=== PATIENT | female | born 1980 | race Hispanic/Latino ===

== ENCOUNTER 2017-07-14 17:31 | Emergency (ER) | payer MEDICAID ==
[2017-07-14 19:16] LABS: RAPID GROUP A STREP NEGATIVE (NEGATIVE)
== END 2017-07-14 19:29 | disposition home or self-care (01) ==
LOC: EDH 17:31
DX: O99.513 Diseases of the respiratory system complicating pregnancy, third trimester (principal); J09.X2 Influenza due to identified novel influenza A virus with other respiratory manifestations; Z3A.30 30 weeks gestation of pregnancy
CPT/HCPCS: 87804; 87880

== ENCOUNTER 2017-10-05 19:38 | Inpatient (IN) | payer MEDICAID ==
[~2017-10-05] VITALS: Ht 157.5 cm; Wt 82.6 kg
[2017-10-05] MEDS ORDERED: OXYTOCIN 10 USP UNITS/ML 20 UNIT in LACTATED RINGERS 1000ML 1,000 ML IV SCH (20:30)
[2017-10-05 20:51] LABS: APPEARANCE,URINE Clear (CLEAR); BILIRUBIN,URINE Negative (NEGATIVE); COLOR,URINE Yellow (YELLOW); GLUCOSE, URINE (UA) Negative (NEGATIVE); KETONES,URINE Negative (NEGATIVE); LEUKOCYTE ESTERASE ,URINE Small (NEGATIVE); NITRATE,URINE Negative (NEGATIVE); OCCULT BLOOD,URINE Small (NEGATIVE); PROTEIN,URINE Negative (NEGATIVE)
[2017-10-05 21:06] LABS: BACTERIA,URINE Moderate /HPF (None Seen); MUCUS,URINE Few LPF (None Seen); SQUAMOUS EPITHELIAL CELL,UR 30-50 /HPF (0-2)
[2017-10-05 22:42] LABS: MEAN CORPUSCULAR VOLUME 80.1 fL (79-99); NUCLEATED RED BLOOD CELLS 0.1 % (0.0-0.19); PLATELET COUNT (AUTO) 168 K/uL (130-400); RED BLOOD CELL COUNT(AUTO) 3.62 MIL/uL (4.00-5.50); RED CELL DISTRIBUTION WIDTH 15.1 % (11.0-15.5); WHITE BLOOD COUNT (AUTO) 9.7 K/uL (4.8-10.8)
[2017-10-06] MEDS ORDERED: LACTATED RINGERS 1000ML 1,000 ML IV ONE ×3 (00:34→11:39)
[2017-10-06] MEDS ORDERED: OXYTOCIN 10 USP UNITS/ML ONE ×2 (04:48→11:39)
[2017-10-06] MEDS ORDERED: PROMETHAZINE HCL 25 MG/ML 1ML AMPULE IM ONE (10:42)
[2017-10-06] MEDS ORDERED: MEPERIDINE-PF 50 MG/ML SYG ONE (10:43)
[2017-10-06] MEDS ORDERED: MEPERIDINE-PF 50 MG/ML SYG IVP SCH (10:45)
[2017-10-06] MEDS ORDERED: PROMETHAZINE HCL 25 MG/ML 1ML AMPULE IM SCH (10:45)
[2017-10-06] MEDS ORDERED: OXYTOCIN-LR 20 UNITS/1000 ML 1,000 ML IV SCH (12:00)
[2017-10-06] MEDS ORDERED: BENZOCAINE/LANOLIN/ALOE VERA 60 ML AEROSOL TP PRN (12:00)
[2017-10-06] MEDS ORDERED: WITCH HAZEL 1 PAD TP PRN (12:00)
[2017-10-06] MEDS ORDERED: DIPH,PERTUSS(ACELL),TET VAC/PF 0.5 ML VIAL IM PRN (12:00)
[2017-10-06] MEDS ORDERED: MEASLES/MUMPS/RUBELLA VACCINE, LIVE 0.5 ML/VIAL SQ PRN (12:00)
[2017-10-06] MEDS ORDERED: LANOLIN 30GM OINTMENT TP PRN (12:00)
[2017-10-06] MEDS: IBUPROFEN 600 MG TABLET PO PRN (12:57)
[2017-10-06] MEDS ORDERED: PREN-154 PO (13:18)
[2017-10-06 15:29] VITALS: BP 141/73
[2017-10-06 19:12] VITALS: BP 129/73
[2017-10-06] MEDS: DOCUSATE SODIUM 100 MG CAP PO SCH (20:48)
[2017-10-06 23:08] VITALS: BP 113/61
[2017-10-07 03:27] VITALS: BP 126/84
[2017-10-07] MEDS: IBUPROFEN 600 MG TABLET PO PRN ×2 (03:51→11:38)
[2017-10-07 07:00] VITALS: BP 129/75
[2017-10-07 07:33] LABS: HEMATOCRIT 28.7 % (36-48); MEAN CORPUSCULAR HEMOGLOBIN 27.7 pg (27.0-33.0); MEAN CORPUSCULAR HGB CONC 34.7 g/dL (32.0-36.0); MEAN CORPUSCULAR VOLUME 79.8 fL (79-99); PLATELET COUNT (AUTO) 167 K/uL (130-400); RED BLOOD CELL COUNT(AUTO) 3.59 MIL/uL (4.00-5.50); RED CELL DISTRIBUTION WIDTH 15.4 % (11.0-15.5); WHITE BLOOD COUNT (AUTO) 10.7 K/uL (4.8-10.8)
[2017-10-07 08:19] LABS: HEPATITIS Bs ANTIGEN SCREEN P Negative (Negative)
[2017-10-07] MEDS: DOCUSATE SODIUM 100 MG CAP PO SCH (08:56)
[2017-10-07 11:00] VITALS: BP 128/80
== END 2017-10-07 13:45 | disposition home or self-care (01) | DRG 560 ==
LOC: LDH 19:38 → WSH 10-06 13:00
PROVIDERS: ADMIT Obstetrics & Gynecology; ATTEND Obstetrics & Gynecology
PROC: 0HQ9XZZ Repair Perineum Skin, External Approach (ICD-10-PCS; principal; 2017-10-05)
PROC: 10E0XZZ Delivery of Products of Conception, External Approach (ICD-10-PCS; 2017-10-05)
PROC: 3E0234Z Introduction of Serum, Toxoid and Vaccine into Muscle, Percutaneous Approach (ICD-10-PCS; 2017-10-05)
PROC: 3E0134Z Introduction of Serum, Toxoid and Vaccine into Subcutaneous Tissue, Percutaneous Approach (ICD-10-PCS; 2017-10-05)
DX: O99.02 Anemia complicating childbirth (principal); D64.9 Anemia, unspecified; O70.0 First degree perineal laceration during delivery; Z37.0 Single live birth; Z3A.39 39 weeks gestation of pregnancy; Z23 Encounter for immunization
CPT/HCPCS: 36415; 81001; 85027; 86592; 86850; 86900; 86901; 87340; 90715; A4606; J2175; J2550; J2590; J7120

== ENCOUNTER 2018-09-20 12:43 | Emergency (ER) | payer MEDICAID, OTHER ==
[~2018-09-20 12:43] MED LIST: PREN-154 PO
[2018-09-20 13:50] LABS: APPEARANCE,URINE Clear (CLEAR); BILIRUBIN,URINE Negative (NEGATIVE); COLOR,URINE Yellow (YELLOW); GLUCOSE, URINE (UA) Negative (NEGATIVE); KETONES,URINE Negative (NEGATIVE); LEUKOCYTE ESTERASE ,URINE Negative (NEGATIVE); NITRATE,URINE Negative (NEGATIVE); OCCULT BLOOD,URINE Nonhemolyzed Trace (NEGATIVE); PH,URINE 6.5 (5.0-8.0); PROTEIN,URINE Negative (NEGATIVE)
[2018-09-20 14:03] LABS: HCG,QUAL RESULT NEGATIVE (NEGATIVE)
[2018-09-20 14:20] LABS: BACTERIA,URINE None Seen /HPF (None Seen); MUCUS,URINE Few LPF (None Seen); RBC,URINE 0-1 /HPF (0-1); WBC,URINE None Seen /HPF (0-1)
== END 2018-09-20 15:43 | disposition home or self-care (01) ==
LOC: EDH 12:43
DX: B34.9 Viral infection, unspecified (principal)
CPT/HCPCS: 81001; 81025; 87804